=== PATIENT | male | born 2000 | race Caucasian/White ===

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

== ENCOUNTER 2022-06-15 19:28 | Emergency (ER) | payer MEDICAID ==
[~2022-06-15] VITALS: Ht 188 cm; Wt 75.0 kg
[~2022-06-15 19:28] MED LIST changes: +AMOXICILLIN875 MG PO
[2022-06-15 19:41] VITALS: BP 134/93; TEMP 98.3
[2022-06-15] MEDS ORDERED: FLOXIN OTIC DROP5 ML OT (21:37)
[2022-06-15 21:43] VITALS: PULSE 85
== END 2022-06-15 21:50 | disposition home or self-care (01) ==
LOC: COL.ER 19:28
DX: T15.92XA Foreign body on external eye, part unspecified, left eye, initial encounter (principal); X58.XXXA Exposure to other specified factors, initial encounter; Y92.59 Other trade areas as the place of occurrence of the external cause; Y99.0 Civilian activity done for income or pay